=== PATIENT | male | born 1945 | race Caucasian/White ===

== ENCOUNTER → 2020-02-25 08:58 | Outpatient (CLI) | payer MEDICARE, SELFPAY ==
--- NOTE | ~2020-02-25 | CT_ITS ---
EXAMINATION: CT sinus wo con DATE: 02/25/2020 09:14 INDICATION: Other specified disorders of the nose and nasal sinuses, sinus pressure TECHNIQUE: Computed tomography (CT) of the paranasal sinuses was performed without intravenous contra st. The dose-length product (DLP) was 274.70 mGy-cm. Iterative reconstruction was used. COMPARISON: None FINDINGS: There is normal development and pneumatization of the paranasal sinuses. There are 5 mm of leftward deviation of the nasal septum. The frontal, sphenoid, ethmoid, and maxillary sinuses are kirsten ar. The bilateral ostiomeatal complexes are patent. Visualized soft tissues are unremarkable. IMPRESSION: 1. 5 mm of leftward deviation of the nasal septum. Reviewed, dictated and finalized at location A.
== END ==
PROVIDERS: PCP Internal Medicine; Visit Provider Internal Medicine
DX: J34.89 Other specified disorders of nose and nasal sinuses (principal); E11.9 Type 2 diabetes mellitus without complications; I10 Essential (primary) hypertension; J34.2 Deviated nasal septum
CPT/HCPCS: 70486

== ENCOUNTER 2020-08-18 13:42 | Emergency (ER) | payer MEDICARE, SELFPAY ==
[2020-08-18] VITALS (15 sets, daily range): BP systolic 117–160; BP diastolic 46–69; PULSE 72–83; RESP 12–20; TEMP 36.6; O2SAT 95–100
--- NOTE | ~2020-08-18 | CT_ITS ---
EXAMINATION: CT lumbar spine [facility] EXAM DATE: 08/18/2020 14:28 INDICATION: Right lobe back pain, difficulty ambulating . TECHNIQUE: Spiral CT of the lumbar spine was performed without contrast. Axial, coronal and sagittal images were reviewed. The dose-length product (DLP) for this examination was 652.00 mGy-cm. The e xposure was tailored according to patient size (auto mA exposure control), and iterative reconstructi on (ASIR) was used as additional dose reduction technique. Comparison is made to prior examination fr 02/05/2016. FINDINGS: There are no acute fractures identified. Bridging endplate osteophytes throughout lumbosacr al spine with progression compared to study from 2016. Sacroiliac joints do not appear fused. There i s mild to moderate loss of the L5-S1 disc height, mild disc disease at other lumbar levels. No lumbar scoliosis. There are no osteoblastic or osteolytic lesions identified. The vertebral bodies are alig ngoc in the AP dimension. Moderate aortic arterial sclerosis. Mild sigmoid colonic diverticulosis. Nor mal appendix. Level by level evaluation: T12-L1: Disc does not extend beyond the endplate margin. Facet arthropathy: None. Neural foraminal stenosis: No stenosis. Central canal stenosis: No stenosis. L1-L2: There is a mild diffuse disc bulge. Facet arthropathy: Mild. Neural foraminal stenosis: No stenosis. Central canal stenosis: No stenosis. L2-L3: There is a mild diffuse disc bulge. Facet arthropathy: Mild to moderate. Neural foraminal stenosis: Mild left. Central canal stenosis: No stenosis. L3-L4: There is a mild diffuse disc bulge. Facet arthropathy: Moderate. Neural foraminal stenosis: Mild bilateral. Central canal stenosis: No stenosis. L4-L5: There is a mild to moderate diffuse disc bulge. Facet arthropathy: Moderate left greater than right. Neural foraminal stenosis: Mild bilateral. Central canal stenosis: No stenosis. L5-S1: There is a mild diffuse disc bulge. Facet arthropathy: Moderate. Neural foraminal stenosis: Mild to moderate bilateral. Central canal stenosis: No stenosis. IMPRESSION: 1. No acute lumbar findings. 2. Fused lumbar spine probably diffuse idiopathic skeletal hyperostosis. 3. Mild to moderate lumbar spondylosis. Reviewed, dictated and finalized at location B. [employer]
--- NOTE | ~2020-08-18 | XR_ITS ---
XR hip RT min 3V w AP pelvis DATE: 08/18/2020 14:38 INDICATION: Right posterior hip pain TECHNIQUE: AP pelvis. AP, lateral and crosstable lateral views of right hip COMPARISON: None FINDINGS: No pelvic fracture or bone destruction. The pubic symphysis and sacroiliac joints are intac t. No fracture, dislocation, avascular necrosis or bone destruction. Joint spaces are symmetric and rela tively preserved. Degenerative disc disease of the included lumbar and lumbosacral area. IMPRESSION: No significant abnormality of the pelvis or right hip Reviewed, dictated and finalized at location A. STICKER
--- NOTE | 2020-08-18 14:17 | ED.LOWEXIN ---
HPI - Extremity Injury (Lower) General Chief Complaint: Extremity Injury, Lower Stated Complaint: L Hip pain Time Seen by Provider: 08/18/20 14:02 Source: patient Mode of arrival: EMS Limitations: no limitations History of Present Illness HPI Narrative: This is a 75-year-old male that presents to the emergency department for right-sided low back pain present x6 weeks. No known injury or trauma. Worse with movement and relieved with rest. Reports he has had trouble with his back for years. He was seen by an orthopedic spine surgeon for this. Was told it was due to DISH. Recommended pain medications as needed, no surgeries. Over the last 6 weeks has had worsening of his symptoms again. He has been taking Tylenol 3 times daily and Flexeril at night without relief. Denies fever, saddle anesthesia, or bowel/bladder incontinence. Related Data Home Medications Medication Instructions Recorded Confirmed aspirin 81 mg tablet,delayed 81 mg PO DAILY 07/22/19 06/20/20 release ibuprofen 200 mg tablet 400 mg PO Q6H PRN tablet 07/22/19 06/20/20 melatonin 10 mg tablet PO 07/22/19 06/20/20 Allergies Allergy/AdvReac Type Severity Reaction Status Date / Time fish oil Allergy Mild Hives Verified 08/18/20 13:49 Review of Systems Review of Systems: Narrative: CONSTITUTIONAL: Denies fever SKIN: Denies rash MUSCULOSKELETAL: Reports back pain, joint pain, and myalgia. NEUROLOGIC: Denies numbness, or weakness. All systems reviewed & are unremarkable except as noted in HPI and below PMFSH Past Medical History Medical History (Updated 08/18/20 @ 16:10 by Celia Cortes PA-C) DISH (diffuse idiopathic skeletal hyperostosis) Essential hypertension Mixed hyperlipidemia Type II diabetes mellitus Family History Family History Mother Patient's mother is , Onset Age: 84 Father Family history of pancreatic cancer, Onset Age: 82 Other Cerebrovascular accident Social History Social History Smoking status: Former smoker Smoking end date: 06/24/97 Additional smoking assessment comments: Patient states that he occasionally uses chewing tobacco Alcohol intake: never Substance use: never Exam Narrative: Exam Narrative: GENERAL: Well-appearing, well-nourished, and in no acute distress. HEAD: Normocephalic, atraumatic. EYES: EOMI. CHEST: Clear to auscultation. No respiratory distress. No wheezes rales or rhonchi HEART: Regular rate and rhythm. No murmur heard. Normal peripheral pulses. BACK: No midline spinal tenderness. EXTREMITIES: Normal range of motion. No edema. Strength equal in bilateral lower extremities (5/5). Normal DP pulses. Normal sensation SKIN: Warm, dry, no rash. NEURO: No focal deficits. Alert and oriented x3. PSYCH: Normal mood and affect Course Vital Signs Vital signs: Vital Signs Temperature 97.8 F 08/18/20 13:45 Pulse Rate 83 08/18/20 13:45 Respiratory Rate 20 08/18/20 13:45 Blood Pressure 160/69 H 08/18/20 13:45 Pulse Oximetry 100 08/18/20 13:45 Temperature 97.8 F 08/18/20 13:45 Pulse Rate 72 08/18/20 15:32 Respiratory Rate 15 08/18/20 15:32 Blood Pressure 129/57 L 08/18/20 15:32 Pulse Oximetry 96 08/18/20 15:33 MDM - Extremity Injury (Lower) MDM Narrative Medical decision making narrative: Patient presents the emergency department for back pain present for the last 6 weeks. No known injury or trauma. Patient is neurologically intact. Right hip/pelvis x-rays without acute findings. CT scan lumbar spine is without acute findings. Does show DISH and mild to moderate lumbar spondylosis. Patient updated on case findings. Patient reports improvement with ibuprofen and Valium. He was instructed to follow-up with his primary care doctor. He was given warnings to return to the ER Imaging Data Radiologist's impression:
[2020-08-18] MEDS: IBUPROFEN 600 MG TABLET PO (14:48)
[2020-08-18] MEDS: diazePAM INJ (*CRX) 10 MG/2 ML SYRINGE 5 MG IM (14:49)
== END 2020-08-18 16:43 | disposition home or self-care (01) ==
PROVIDERS: Emergency Provider Emergency Medicine; PCP Internal Medicine
DX: M54.5 Low back pain (principal); I10 Essential (primary) hypertension; E78.2 Mixed hyperlipidemia; E11.9 Type 2 diabetes mellitus without complications; M48.10 Ankylosing hyperostosis [Forestier], site unspecified; M47.816 Spondylosis without myelopathy or radiculopathy, lumbar region
CPT/HCPCS: 72131; 73502; 96372; 99284; A9270; J3360

== ENCOUNTER → 2021-08-22 02:17 | Outpatient (CLI) | payer MEDICARE, SELFPAY ==
[2021-08-22 11:45] LABS: Influenza A QL RT-PCR Negative (Negative); Influenza B QL RT-PCR Negative (Negative); SARS-CoV-2 RNA PCR Negative
== END ==
PROVIDERS: PCP Internal Medicine; Visit Provider Internal Medicine
DX: R09.89 Other specified symptoms and signs involving the circulatory and respiratory systems (principal); Z20.822 Contact with and (suspected) exposure to COVID-19
CPT/HCPCS: 87502; C9803; U0003; U0005

== ENCOUNTER 2021-12-04 11:14 | Emergency (ER) | payer MEDICARE, SELFPAY ==
[2021-12-04 11:30] VITALS: BP 163/62; PULSE 97; RESP 14; TEMP 36.6; O2SAT 98
[2021-12-04 11:41] LABS: Appearance Urine Clear (Clear); Bilirubin Urine Negative (Negative); Blood Urine Negative (Negative); Color Urine Yellow (Yellow); Glucose Urine UA Negative (Negative); Ketones Urine Negative (Negative); Leukocyte Esterase Ur Negative LEU/UL (Negative); Nitrate Urine Negative (Negative); Protein Urine Negative (Negative); Specific Grav Ur 1.025 (1.001-1.035); Urobilinogen Urine 0.2 mg/dL (<2.0); pH Urine 5.5 (5.0-9.0)
[2021-12-04 12:03] LABS: Add Urine Microscopic? NO
[2021-12-04 13:46] VITALS: BP 126/78; PULSE 70; RESP 16; TEMP 36.8; O2SAT 97
--- NOTE | 2021-12-04 18:36 | ED.MALEGU ---
HPI - Male Genitourinary General Chief complaint: Urogenital-Male Stated complaint: uti?? Time Seen by Provider: 12/04/21 11:33 Source: patient Mode of arrival: ambulatory Limitations: no limitations History of Present Illness HPI Narrative: 76-year-old male presents today with complaints of 1 week of burning to the penis and 3-4 days of redness to the penis. Patient is concerned for UTI. Patient does endorse dysuria but after further evaluation patient is not having dysuria. Patient denies fever, headaches, shortness of breath, possibility of STI (patient has not been sexually active for over 2 years IM 76 and the only thing it gets used for is urinating. ), And trauma. Related Data Home Medications Medication Instructions Recorded Confirmed aspirin 81 mg tablet,delayed 81 mg PO DAILY 07/22/19 11/27/21 release (Adult Aspirin Regimen) ibuprofen 200 mg tablet (Advil) 400 mg PO Q6H PRN Pain 07/22/19 11/27/21 melatonin 10 mg tablet PO 07/22/19 11/27/21 Allergies Allergy/AdvReac Type Severity Reaction Status Date / Time fish oil Allergy Mild Hives Verified 12/04/21 11:15 Review of Systems Review of Systems: CONSTITUTIONAL: Denies fever, chills, or sweats. EYES: Denies visual changes, redness, or discharge. ENT: Denies rhinorrhea, congestion, sore throat, or otalgia. CARDIOVASCULAR: Denies chest pain, palpitations, or edema. RESPIRATORY: Denies cough or dyspnea. GASTROINTESTINAL: Denies abdominal pain, nausea, vomiting, or diarrhea. GENITOURINARY: Penile burning intermittently and redness. Denies dysuria or hematuria. SKIN: Denies rash or itching. MUSCULOSKELETAL: Denies back pain, joint pain, or myalgia. NEUROLOGIC: Denies headache, numbness, dizziness, or weakness. PSYCHIATRIC: Denies anxiety or depression. [facility] Past Medical History Medical History DISH (diffuse idiopathic skeletal hyperostosis) Essential hypertension Mixed hyperlipidemia Type II diabetes mellitus Family History Family History Mother Patient's mother is , Onset Age: 84 Father Family history of pancreatic cancer, Onset Age: 82 Other Cerebrovascular accident Social History Social History Smoking status: Former smoker Smoking end date: 06/24/97 Additional smoking assessment comments: Patient states that he occasionally uses chewing tobacco Alcohol intake: never Substance use: never Exam Narrative: GENERAL: Well-appearing, well-nourished, and in no acute distress. HEAD: Normocephalic, atraumatic. EYES: PERRLA and EOMI. NECK: Supple. No adenopathy or masses. No carotid bruits or JVD CHEST: Clear to auscultation. No respiratory distress. No wheezes rales or rhonchi HEART: Regular rate and rhythm. No murmur heard. Normal peripheral pulses. ABDOMEN: Soft, nontender, nondistended, normal active bowel sounds. EXTREMITIES: Normal range of motion. No edema. : No erythema, drainage from penis, or drainage from wound noted. 2 small wounds noted to dorsal side of glans. Appearance of hemorrhagic blister. 1 approximately half centimeter diameter and other approximately 2 mm diameter. SKIN: Warm, dry, no rash. NEURO: No focal deficits. Alert and oriented x3. PSYCH: Normal mood and affect. Course Course Emergency Course: Urine results discussed with patient. Patient instructed to monitor areas and follow-up with primary or urology if no improvement or worsening of symptoms. Patient is aware to return here with any new or worsening. Vital Signs Vital signs: Vital Signs Temperature 36.6 C 12/04/21 11:30 Pulse Rate 97 12/04/21 11:30 Respiratory Rate 14 12/04/21 11:30 Blood Pressure 163/62 H 12/04/21 11:30 Pulse Oximetry 98 12/04/21 11:30 Temperature 36.8 C 12/04/21 13:46 Pulse Rate 70 12/04/21 13:46 Respiratory Rate
== END 2021-12-04 13:48 | disposition home or self-care (01) ==
PROVIDERS: General Practice; Emergency Provider Nurse Practitioner Family; PCP Internal Medicine
DX: S31.20XA Unspecified open wound of penis, initial encounter (principal); R30.0 Dysuria; I10 Essential (primary) hypertension; E78.2 Mixed hyperlipidemia; E11.9 Type 2 diabetes mellitus without complications; Z79.82 Long term (current) use of aspirin; Z79.1 Long term (current) use of non-steroidal anti-inflammatories (NSAID); Z87.891 Personal history of nicotine dependence; X58.XXXA Exposure to other specified factors, initial encounter
CPT/HCPCS: 81003; 99283